=== PATIENT | female | born 1970 | race Caucasian/White ===

== ENCOUNTER 2019-10-14 12:42 | Emergency (ER) | payer BC, MEDICAID, SELFPAY ==
--- NOTE | ~2019-10-14 | XR_ITS ---
EXAMINATION: XR toe 1st RT min 2V INDICATION: Right first toe pain, initial encounter TECHNIQUE: Three views of the right first toe are obtained. COMPARISON: None available FINDINGS: There is a nondisplaced oblique fracture involving the first distal phalanx. Soft tissue sw elling surrounds the fracture. The joint spaces are normal. 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 IMPRESSION: 1. Nondisplaced first distal phalanx fracture. Reviewed, dictated and finalized at location A.
[2019-10-14 13:05] VITALS: BP 138/89; PULSE 107; PULSE 112; RESP 20; TEMP 36.9; O2SAT 94
--- NOTE | 2019-10-14 13:08 | ED.GENADULT ---
HPI - General Adult General Chief complaint: Unspecified <Inocente Gil MD - Last Filed: 10/14/19 15:51> Stated complaint: memory issues, does not know why she is here <Inocente Gil MD - Last Filed: 10/14/19 15:51> Time Seen by Provider: 10/14/19 12:54 <Inocente Gil MD - Last Filed: 10/14/19 15:51> History of Present Illness HPI narrative: Patient is a 48-year-old female who presents the ER in the company of her sister. Patient reports she is not entirely sure why she is here. Currently she has been trying to get closer to David and accept him into her body through the release of shock rest. She has been a little disturbed by her chakra that have been more active than usual. To release her chakra she has to increase pressure in her chest and face to then release it. Patient has also been performing Portuguese fan dances in her driveway to help with this. Apparently yesterday she recalls that she was aware of all of her physical activity but could not control herself and ended up breaking into a neighbor's home and attempting to steal a puppy. She reports that 2 weeks ago she is some magic mushrooms and since then she has been taking an apple of a mushroom every 8 hours up until yesterday morning. She has been over 24 hours free of hallucinogenic mushroom ingestion. She denies any alcohol or other drugs being consumed. Denies previous history of bipolar disorder or schizophrenia. She has been hospitalized in the past for alcohol abuse. She denies any suicidal ideation or homicidal ideation. Of note patient accidentally stubbed her toe earlier this morning. She has applied a bandage at the toenail and has still been able to ambulate despite having pain. <Inocente Gil MD - Last Filed: 10/14/19 15:51> Related Data Home medications: Home Medications Medication Instructions Recorded Confirmed No Home Medications 10/14/19 10/14/19 <Inocente Gil MD - Last Filed: 10/14/19 15:51> Allergies/adverse reactions: Allergies Allergy/AdvReac Type Severity Reaction Status Date / Time No Known Allergies Allergy Verified 10/14/19 13:10 <Inocente Gil MD - Last Filed: 10/14/19 15:51> Review of Systems Review of Systems: All systems reviewed & are unremarkable except as noted in HPI and below <Inocente Gil MD - Last Filed: 10/14/19 15:51> Constitutional: Constitutional: Denies chills, Denies fever(s) and Denies weakness <Inocente Gil MD - Last Filed: 10/14/19 15:51> ENT: Denies nasal congestion and Denies sore throat <Inocente Gil MD - Last Filed: 10/14/19 15:51> Cardiovascular: Cardiovascular: Denies chest pain and Denies rapid heart rate <Inocente Gil MD - Last Filed: 10/14/19 15:51> Respiratory: Respiratory: Denies cough, Denies dyspnea and Denies wheezing <Inocente Gil MD - Last Filed: 10/14/19 15:51> Psychiatric: Psychiatric: Denies anxiety, Denies depression, Denies homicidal ideation and Denies suicidal ideation <Inocente Gil MD - Last Filed: 10/14/19 15:51> Comments: Positive hallucinations <Inocente Gil MD - Last Filed: 10/14/19 15:51> PMFSH Past Medical History Medical History: Medical History (Updated 10/14/19 @ 19:46 by Sonali Martin MD) Alcoholism <Inocente Gil MD - Last Filed: 10/14/19 15:51> Surgical History Surgical History: Surgical History (Updated 10/14/19 @ 15:49 by Inocente Gil MD) No pertinent past surgical history <Inocente Gil MD - Last Filed: 10/14/19 15:51> Family History Family History: Family History (Updated 11/26/17 @ 14:59 by DOCTOR UNKNOWN) Grandparent Family history of pancreatic cancer Father Family history of coronary artery disease <Inocente Gil MD - Last Filed: 10/14/19 15:51> Social History Social History: Social History (Updated 10/14/19 @ 15:49 by Inocente Gil MD) Smoking status: Former smoker
[2019-10-14 13:16] VITALS: BP 141/97; PULSE 101; RESP 17
--- NOTE | 2019-10-14 13:29 | PC.NURSE ---
Pt and sister tell Dr. Gil that the patient was doing a spiritual dance yesterday in her driveway and that she was told to break into her neighbors house and try to steal their puppies. Pt also states to Dr. Gil that she has been taking a part of the OrdrIt mushrooms every 8 hours for the past two weeks.
[2019-10-14 13:42] LABS: Basophils Percent Auto 0.7 % (0.2-1.2); Eosinophils Absolute Auto 0.1 K/mm3 (0-0.3); Eosinophils Percent Auto 1.3 % (0-4.4); Hematocrit 39.3 % (37.0-47.0); Hemoglobin 13.1 g/dL (12.0-15.0); Immature Granulocyte Absolute 0.01 K/mm3 (0.00-0.031); Immature Granulocyte Percent A 0.2 % (0-0.5); Lymphocytes Absolute Auto 1.23 K/mm3 (0.9-3.2); Lymphocytes Percent Auto 26.7 % (18.3-44.2); Mean Corpuscular HGB Conc 33.3 g/dl (32-36); Mean Corpuscular Hemoglobin 29.8 pg (26-34); Mean Corpuscular Volume 89.5 fl (80-100); Mean Platelet Volume 11.3 fl (7.4-10.4); Monocytes Absolute Auto 0.4 K/mm3 (0.1-0.6); Monocytes Percent Auto 8.9 % (2.6-8.5); Neutrophils Absolute Auto 2.9 K/mm3 (1.3-6.7); Neutrophils Percent Auto 62.2 % (45.5-73.1); Platelet Count Result 206 k/mm3 (150-375); Red Blood Count 4.39 M/mm3 (4.2-5.4); Red Cell Distribution Width 12.2 % (11.5-14.5); White Blood Count 4.6 K/mm3 (4.5-10.0)
[2019-10-14 13:46] VITALS: BP 126/86; PULSE 80; RESP 11
[2019-10-14 14:00] LABS: Acetaminophen < 10 ug/mL (10-30); Ethanol < 10 mg/dL (<10); Salicylate < 1.0 mg/dL (2-20)
[2019-10-14 14:01] VITALS: BP 126/86; PULSE 90; RESP 16
[2019-10-14 14:19] VITALS: RESP 30
[2019-10-14 14:27] LABS: Thyroid Stimulating Hormone 0.696 uIU/mL (0.465-4.680)
--- NOTE | 2019-10-14 14:43 | PC.NURSE ---
Pt encouraged to attempt to void again, states yes I know everyone is telling me . Explained to patient that we can straight cath patient for urine, pt states oh no, you're not doing that .
--- NOTE | 2019-10-14 14:55 | PC.NURSE ---
Received report from health type technician that pt is becoming agitated, not wanting to give a urine and is upset because she doesn't know what we're waiting on. In to speak with patient, explained pending lab and urine, and then will contact crisis intervention to come and speak with the patient. The patient was offered ativan to help her with remaining calm if need be per order Dr. Gil. Pt declines at this time.
--- NOTE | 2019-10-14 15:05 | PC.NURSE ---
Post op shoe applied. Explained to patient that the lab has called and the lid had come off and that we need a repeat urine for a drug screen. Bedside report being given to WILMAN Kirkland, to continue care. Pt up to bathroom to attempt urine collection again. Preparing to contact crisis.
[2019-10-14 15:29] LABS: Add Urine Microscopic? YES; Appearance Urine Clear (Clear); Bacteria Urine Trace /hpf; Bilirubin Urine Negative (Negative); Blood Urine Negative (Negative); Color Urine Straw (Yellow); Glucose Urine UA Negative (Negative); Ketones Urine Trace mg/dL (Negative); Leukocyte Esterase Ur Negative LEU/UL (Negative); Nitrate Urine Negative (Negative); Protein Urine Negative (Negative); RBC Urine 0-2 /hpf (0-2); Specific Grav Ur 1.008 (1.001-1.035); Squamous Epithelial Cell Urine Few /hpf (Few); Urobilinogen Urine Negative mg/dL (<2.0); WBC Urine 0-3 /hpf
--- NOTE | 2019-10-14 15:31 | PC.NURSE ---
Addendum entered by Laz Mathur RN 10/14/19 15:39: States will be out as soon as possible. Pt updated. Original Note: [place] from Crisis contacted.
--- NOTE | 2019-10-14 15:34 | PC.NURSE ---
assuming care of pt from Laz STOVALL. Pt is in bed crying. Pt not wanting anyone to talk to her or touch her. Pt sister at bedside. Crisis notified by Laz STOVALL at this time. Pt admits to taking mushrooms. Pt is A&Ox4. Pt admits to auditory and visual hallucinations periodically. Pt mood is varient. Pt aware of POC.
[2019-10-14] MEDS: LORAZEPAM 1 MG TABLET PO ×2 (15:55→20:15)
[2019-10-14 15:59] LABS: Amphetamine Screen Urine Negative (Negative); Barbiturate Screen Urine Negative (Negative); Benzodiazepines Screen Urine Negative (Negative); Cannabinoid Screen Urine Positive (Negative); Cocaine Screen Urine Negative (Negative); Methadone Screen Urine Negative (Negative); Opiate Screen Urine Negative (Negative); Phencyclidine Screen Urine Negative (Negative)
--- NOTE | 2019-10-14 16:37 | PC.NURSE ---
[place] from Crisis here to speak with patient regarding plan of care.
--- NOTE | 2019-10-14 17:18 | PC.NURSE ---
Pt changed into blue scrubs and belongings secured. Pt aware that she is being admitted to a psychiatric facility
[2019-10-14 17:35] LABS: Pregnancy On Board Control Positive; Specific Gravity Ur 1.002 (1.010-1.035); Urine Pregnancy Test Negative
--- NOTE | 2019-10-14 21:28 | PC.NURSE ---
called [facility] to transport patient to [facility].
--- NOTE | 2019-10-14 21:41 | PC.NURSE ---
[facility] declined at 2130 Called [facility] at 2131 to transport patient to [facility]. ETA 0100 Called [facility] at 2135 to transport patient. [facility]. Called [facility] at 2140 to transport patient. [facility] Declined.
[2019-10-14 23:54] VITALS: BP 130/88; PULSE 88; RESP 18; O2SAT 99
--- NOTE | 2019-10-15 01:30 | PC.NURSE ---
ETA update from [facility] is [id number]
[2019-10-15 04:34] VITALS: BP 142/88; PULSE 82; RESP 18; O2SAT 99
== END 2019-10-15 04:35 ==
PROVIDERS: Emergency Medicine; Emergency Provider Emergency Medicine
DX: F41.9 Anxiety disorder, unspecified (principal); F29 Unspecified psychosis not due to a substance or known physiological condition; F10.20 Alcohol dependence, uncomplicated
CPT/HCPCS: 36415; 73660; 80307; 81001; 81025; 84443; 85025; 99285; A9270

== ENCOUNTER 2025-02-17 09:37 | Outpatient (CLI) | payer OTHER, SELFPAY ==
--- NOTE | ~2025-02-17 | MM_ITS ---
EXAMINATION: MM screening [facility] BI w ignacia INDICATION: Asymptomatic, referred for screening mammogram COMPARISON: None available TECHNIQUE: Digital Breast Tomosynthesis CC, MLO views of Both breasts were obtained with computer-aided detection to assist in interpretation of the study. FINDINGS: There are scattered areas of fibroglandular density. There are regional calcifications that spans 4.4 cm associated with a background of focal asymmetry in the inferior lateral right breast at posterior third. Elsewhere, there are no mammographic features of malignancy. IMPRESSION: 1. Right breast Incompletely characterized group of calcifications. 2. No evidence of malignancy in the Left breast. RECOMMENDATION: Right breast Diagnostic mammogram with true lateral, and appropriate magnification views. BI-RADS Category 0: Incomplete: Needs additional imaging evaluation. Reviewed, dictated and finalized at location B. IMPRESSION: 1. Right breast Incompletely characterized group of calcifications. 2. No evidence of malignancy in the Left breast. RECOMMENDATION: Right breast Diagnostic mammogram with true lateral, and appropriate magnificat ion views. BI-RADS Category 0: Incomplete: Needs additional imaging evaluation.
--- OUTSIDE RECORDS SUMMARY | 2025-02-17 09:47 | XMS_ITS | Clinical Summary ---
Author Organization [facility] Address [address] [place] [address] Care Team Providers Care Poultry Raiser Name Role Phone Unavailable Primary Care Provider Unavailabl e Source Comments [facility],non-owned Affiliates and Associated Physician Practices is amultiple site organization consisting of ambulatory clinics and hospital sitesin [place], [place], [place] and [place]. This disclosure is being madepursuant to the Care Everywhere program and may not contain all information available regarding this patient. Last updated 18.[facility] [employer] Social History Tobacco Use Types Packs/Day Years Used Date Smoking Tobacco: Never Assessed Comments Unknown Sex and Gender Information Value Date Recorded Sex Assigned at Not on file Legal Sex Female 1:08 PM CDT Gender Identity Not on file Sexual Orientation Not on file Plan of Treatment Health Maintenance Due Date Last Done Comments COLOGUARD (AGES 45-75) - COL ON CA SCREENING 1971 COLON MONITORING 1971 COLONOSCOPY - COLON CA SCREENING 1971 CT COLONOGRAPHY - COLON CA SCREENING 1971 Colorectal Cancer Screening 1971 FIT - COLON CA SCREENING 1971 FLEX SIG - COLON CA SCREENING 1971 LIPID TESTING 1971 MAMMOGRAM 1971 HIV SCREENING 11/17/1986 HEPATITIS C SCREENING 11/13/1989 DTAP/TDAP/TD VACCINES (1 - Tdap) 11/17/1990 HEPATITIS B VACCINE (1 of 3 - 19+ 3-dose series) 11/17/1990 PNEUMOCOCCAL VACCINE 50+ (1 of 1 - PCV) 11/17/2021 ZOSTER VACCINE (1 of 2) 11/17/2021 COVID-19 VACCINE (1 - 2023-2 5 season) 2024 DEPRESSION SCREENING 06/23/2024 INFLUENZA VACCINE (#1) 2025 HIB VACCINE Aged Out No longer eligi ble based on patient's age to complete this topic HPV VACCINE Aged Out No longer eligi ble based on patient's age to complete this topic MENINGOCOCCAL (Group B) VACC INE SHARED DECISION-MAKING Aged Out No longer eligibl e based on patient's age to complete this topic MENINGOCOCCAL GROUPS A/C/Y/W VACCINE Aged Out No longer eligible b ased on patient's age to complete this topic
== END 2025-02-17 09:38 | disposition home or self-care (01) ==
LOC: ANHFOHIMG 09:40
PROVIDERS: PCP Family Medicine; Visit Provider Family Medicine
DX: Z12.31 Encounter for screening mammogram for malignant neoplasm of breast (principal); R92.8 Other abnormal and inconclusive findings on diagnostic imaging of breast
CPT/HCPCS: 77063; 77067

== ENCOUNTER 2025-05-04 11:02 | Outpatient (CLI) | payer OTHER, SELFPAY ==
--- NOTE | ~2025-05-04 | MM_ITS ---
EXAMINATION: MM diagnostic annalee RT w ignacia HISTORY: Follow-up right breast calcifications TECHNIQUE: Additional 3-D tomosynthesis images of the right breast were performed and synthetic 2-D images were generated. CAD analysis was submitted and interpreted. COMPARISON: 02/17/2025 BREAST PARENCHYMAL COMPOSITION: Not dense: There are scattered areas of fibroglandular density. FINDINGS: There is a cluster of indeterminate calcifications in the lateral aspect of the right breast at approximately 9:00, middle third. There are no associated discrete masses or areas of architectural distortion. IMPRESSION: 1. Clustered indeterminate right breast calcifications at 9:00, middle third. 2. Stereotactic right breast biopsy recommended. BI-RADS category 4, suspicious findings. Reviewed, dictated and finalized at location B. RMATIVE ACTION SPECIALIST
--- OUTSIDE RECORDS SUMMARY | 2025-05-04 12:44 | XMS_ITS | Clinical Summary ---
Author Organization [facility] Address [address] [place] [address] Care Team Providers Care Stator Connector Name Role Phone Unavailable Primary Care Provider Unavailabl e Source Comments [facility],non-owned Affiliates and Associated Physician Practices is amultiple site organization consisting of ambulatory clinics and hospital sitesin [place], [place], [place] and [place]. This disclosure is being madepursuant to the Care Everywhere program and may not contain all information available regarding this patient. Last updated 18.[facility] [employer] Social History Tobacco Use Types Packs/Day Years [...] 11/17/2021 ZOSTER VACCINE (1 of 2) 11/17/2021 DEPRESSION SCREENING 06/23/2024 COVID-19 VACCINE (1 - 2023-2 5 season) 2025 INFLUENZA VACCINE (#1) 2025 HIB VACCINE Aged [...]
== END 2025-05-04 11:03 | disposition home or self-care (01) ==
LOC: ANHFOHIMG 11:04
PROVIDERS: PCP Family Medicine; Visit Provider Family Medicine
DX: R92.8 Other abnormal and inconclusive findings on diagnostic imaging of breast (principal)
CPT/HCPCS: 77061; 77065; G0279